=== PATIENT | female | born 1975 | race Caucasian/White ===

== ENCOUNTER → 2024-01-01 14:46 | Outpatient (REF) | payer OTHER, SELFPAY ==
[2024-01-01 15:34] LABS: Glucose 88 mg/dl (70-99); HDL Cholesterol 41 mg/dl; LDL Cholesterol, Calculated 119 mg/dl; Total Cholesterol 197 mg/dl (50-199); Triglyceride 189 mg/dl (10-149); Very Low Density Lipoprotein 37 mg/dl (0-30)
[2024-01-01 15:53] LABS: Vitamin D, 25-OH*** 45.7 ng/mL (30-80)
[2024-01-01 17:49] LABS: TSH 1.65 uIU/ml (0.47-4.68)
[2024-01-02 09:18] LABS: Glycohemoglobin (HgbA1c) 5.8 % (4.0-5.6)
== END ==
LOC: REG 14:46
PROVIDERS: ATTENDING PHYSICIAN Nurse Practitioner Adult Health
DX: E03.9 Hypothyroidism, unspecified (principal); R73.03 Prediabetes; E55.9 Vitamin D deficiency, unspecified
CPT/HCPCS: 36415; 80061; 82306; 82947; 83036; 84439; 84443

== ENCOUNTER → 2024-02-09 14:41 | Outpatient (REF) | payer OTHER, SELFPAY | LOC: WDC 14:41 | PROVIDERS: ATTENDING PHYSICIAN Nurse Practitioner Adult Health | DX: Z12.31 Encounter for screening mammogram for malignant neoplasm of breast (principal); R92.8 Other abnormal and inconclusive findings on diagnostic imaging of breast | CPT/HCPCS: 76642; 77063; 77067 ==

== ENCOUNTER 2024-10-04 14:17 | Emergency (ER) | payer SELFPAY ==
[2024-10-04 14:25] VITALS: BP 168/99
--- NOTE | 2024-10-04 14:25 | ED.GENMED ---
History of Present Illness
General
Chief Complaint: Medication Reaction
Source: patient
Time Seen by Provider: 10/04/24 14:29
History of Present Illness
History of Present Illness:
49-year-old female presenting the ER for medication refill stating that she used to get her Synthroid medication through the [facility] however due to some insurance issues she is unable to see them any further. Patient states that on
October 31 she will be seeing a new primary care provider but needed a new prescription until that point. She otherwise has no other concerns at this time.
Past History
Past History
ED Past Medical History: Hypothyroidism
ED Past Surgical History: None
Social History
Tobacco: Non-smoker
Alcohol: Occasional
Drug: None
Living: with family
Review of Systems
Review of Systems
All Other Systems: ROS reviewed and negative except as documented in HPI and ROS
Phy Exam
Physical Exam
Physical Exam:
GENERAL: Alert , in no apparent distress
EYE: conjunctiva clear
Head: Normocephalic atraumatic
NECK: Supple,
ENT: mmm.
LUNGS: no acute respiratory distress
NEUROLOGICAL: Alert and oriented
SKIN: Warm and dry, skin intact.
MUSCULOSKELETAL: well perfused.
PSYCH: Normal and appropriate interaction.
Scores
Heart Failure Risk
Heart Failure Risk Score: Not Applicable
Heart Score for Chest Pain Patients
STEMI patient?: Not applicable
Withdrawal Assessment of Alcohol
Withdrawal Assessment Completed?: Not applicable
Course
Vital Signs
Initial and Last Documented VS:
Initial Vital Signs
Temp Pulse Resp BP Pulse Ox
98.7 F 80 18 168/99 97
10/04/24 14:25 10/04/24 14:25 10/04/24 14:25 10/04/24 14:25 10/04/24 14:25
Last Documented Vital Signs
Temp Pulse Resp BP Pulse Ox
98.7 F 80 18 168/99 97
10/04/24 14:25 10/04/24 14:25 10/04/24 14:25 10/04/24 14:25 10/04/24 14:25
MDM/Problems Addressed
MDM/Problems Addressed:
Patient presenting to the ER for refill of her Synthroid. She takes 50 mcg every other day and 25 mcg on the other days. Will refill a month supply of this as this will get her to her new primary care provider appointment. She is otherwise stable
for discharge home from the ER.
*Pulse Oximetry
Patient hypoxic: no
*Critical Care Note
Total Time (30-74mins, 75-104mins- exclusive of procedures): Not Applicable
ED Attending Note
-
Portions of this chart may have been created with voice recognition software.� Occasional wrong word or��sound alike� substitutions may have occurred due to the inherent limitations of voice recognition software.
Discharge Plan
Departure
Patient Disposition: Home (Routine Discharge)
Date of Disposition: 10/04/24
Time of Disposition: 14:28
Patient with high blood pressure during this ER visit?: Yes
Discharge Problem:
Prescription refill
Prescriptions:
New
levothyroxine [Synthroid] 50 mcg tablet
See Rx Instructions .ROUTE .COMPLEX Qty: 30 0RF
Rx Instructions:
50 mcg orally every other day
levothyroxine [Synthroid] 25 mcg tablet
See Rx Instructions .ROUTE .COMPLEX Qty: 30 0RF
Rx Instructions:
25 mcg orally every other day
Interventions
Interventions:
*Nursing Disposition Last Done: 10/04/24 14:51
Discharge Date and Time
Discharge Date/Time: 10/04/24 14:52
Print Language: VIET[place]ESE
== END 2024-10-04 14:52 | disposition home or self-care (01) ==
LOC: EMR 14:17
PROVIDERS: EMERGENCY PHYSICIAN Student in an Organized Health Care Education/Training Program
DX: Z76.0 Encounter for issue of repeat prescription (principal); E03.9 Hypothyroidism, unspecified
CPT/HCPCS: 99282

== ENCOUNTER 2024-10-25 15:59 | Emergency (ER) | payer OTHER, SELFPAY ==
[2024-10-25 16:00] VITALS: BP 156/106
[2024-10-25 16:30] VITALS: BMI 24.2
[2024-10-25 16:33] LABS: COVID-19 Antigen Negative (Negative)
--- NOTE | 2024-10-25 16:34 | ED.GENMED ---
History of Present Illness
General
Chief Complaint: Cold/Flu/URI Symptoms
Source: patient
Time Seen by Provider: 10/25/24 16:22
History of Present Illness
History of Present Illness:
49yoF with a history of hypothyroidism presenting for evaluation of URI symptoms x 5-7 days. She initially started with congestion and a head cold. She was treating herself symptomatically with warm tea. Symptoms have been gradually worsening and
she is now having bilateral ear pain, sinus pressure, postnasal drip, body aches, and diarrhea. She is having a mild cough as well. No fevers, vomiting, abdominal pain. Her mother is also sick with similar symptoms. No recent travel.
Past History
Past History
ED Past Medical History: Hypothyroidism
ED Past Surgical History: None
Social History
Tobacco: Non-smoker
Alcohol: Occasional
Drug: None
Living: with family
Phy Exam
General Physical Exam
General Presentation: well appearing and no apparent distress
General age: appears stated age
General Skin: warm and dry
General Habitus: normal
General Mental: alert
ENT Exam
ENT Exam: TM's normal, pharynx normal, neck supple and normocephalic
Additional ENT: +Nasal congestion
Cardiovascular Exam
Cardiovascular Exam: regular rate/rhythm and no murmur
Pulmonary Exam
Pulmonary Exam: lungs clear, no respiratory distress, no rales, no crackles and no rhonchi
Neurological Exam
Neurological Exam: alert
[place] Coma Scale
Eye Opening: Spontaneous
Verbal Response: Oriented
Motor Response: Obeys Commands
GCS Total Score: 15
Skin Exam
Skin Exam: normal color and warm/dry
Psychiatric Exam
Psychiatric Exam: normal mood/affect
Course
Orders/Labs/Results
Orders:
Orders
10/25/24 16:07
COVID-19 Antigen Urgent
Source: Nasal Swab
Influenza A+B Rapid Molecular Urgent
SRINIVAS Source: Nasal Swab
Specimen Description:
Vital Signs
Initial and Last Documented VS:
Initial Vital Signs
Temp Pulse Resp BP Pulse Ox
98.9 F 74 16 156/106 99
10/25/24 16:00 10/25/24 16:00 10/25/24 16:00 10/25/24 16:00 10/25/24 16:00
Last Documented Vital Signs
Temp Pulse Resp BP Pulse Ox
98.9 F 74 16 156/106 98
10/25/24 16:00 10/25/24 16:00 10/25/24 16:00 10/25/24 16:00 10/25/24 16:30
MDM/Problems Addressed
Differential Diagnosis Includes:
49yoF here for URI symptoms x 5-7 days. C/o postnasal drip, ear pain, sinus pressure, body aches, diarrhea. No fevers. She is hypertensive with otherwise normal vitals. She is well appearing in no distress. Exam shows nasal congestion but is
otherwise reassuring. Differential diagnosis includes but is not limited to: URI, influenza, COVID, sinusitis
COVID/flu testing obtained in triage is negative. Suspect viral URI. Supportive care discussed. Provided 'watch and wait' prescription for doxycycline which she was advised to only fill if symptoms do not improve in 3-4 days. Advised f/u with PCP.
Patient discharged in stable condition.
*Critical Care Note
Total Time (30-74mins, 75-104mins- exclusive of procedures): Not Applicable
ED Attending Note
-
Portions of this chart may have been created with voice recognition software.� Occasional wrong word or��sound alike� substitutions may have occurred due to the inherent limitations of voice recognition software.
Discharge Plan
Departure
Patient Disposition: Home (Routine Discharge)
Date of Disposition: 10/25/24
Time of Disposition: 17:00
Patient with high blood pressure during this ER visit?: Yes
Discharge Problem:
Acute upper respiratory infection
Instructions: Upper respiratory infection in adults - Discharge instructions
Prescriptions:
New
doxycycline hyclate 100 mg capsule
100 mg PO BID Qty: 14 0RF
Referrals:
Vega Patterson MD [Family Provider] -
Activity Restrictions/Additional Instructions:
Drink plenty of fluids and rest. Use Mucinex and Flonase nasal spray for congestion. Take ibuprofen 400mg-600mg every 6 hours as needed for body aches/fevers.
Only fill the antibiotic prescription if you do not improve in 3-4 days.
Return to the ER with any worsening symptoms or shortness of breath.
Interventions
Interventions:
*Risk Screen - Suicide Last Done: 10/25/24 16:00
*General Assessment Last Done: 10/25/24 16:00
*Neglect/Abuse Screening Last Done: 10/25/24 16:00
ED- Fall Risk Assessment Last Done: 10/25/24 16:30
*ED COVID-19 Vaccine History Last Done: 10/25/24 16:00
*Nursing Disposition Last Done: 10/25/24 17:12
ED- Pulmonary Assessment Last Done: 10/25/24 16:30
Discharge Date and Time
Discharge Date/Time: 10/25/24 17:21
Print Language: SYRI[place]
== END 2024-10-25 17:21 | disposition home or self-care (01) ==
LOC: EMR 15:59
PROVIDERS: Emergency Medicine; EMERGENCY PHYSICIAN Emergency Medicine; FAMILY PHYSICIAN Family Medicine
DX: J06.9 Acute upper respiratory infection, unspecified (principal); E03.9 Hypothyroidism, unspecified
CPT/HCPCS: 99283; 87502; 87811

== ENCOUNTER → 2025-02-28 15:37 | Outpatient (REF) | payer OTHER, SELFPAY ==
[2025-02-28 16:30] LABS: % Basophils 0.4 % (0-2); % Eosinophils 1.2 % (0-6); % Immature Granulocytes 0.6 % (0-0.5); % Lymphocytes 24.4 % (20.5-51.1); % Monocytes 7.9 % (1.7-9.3); % Neutrophils 65.5 % (42.2-75.2); Absolute Eosinophils 0.1 10^3/uL (0-0.7); Absolute Immature Granulocytes 0.1 10^3/uL (0-0.05); Absolute Monocytes 0.7 10^3/uL (0.1-0.6); Absolute Neutrophils 5.5 10^3/uL (1.4-6.5); Hematocrit 36.6 % (37.0-47.0); Hemoglobin 12.1 g/dL (12.0-16.0); Mean Corp Hgb Conc. 33.1 g/dL (33.0-37.0); Mean Corpuscular Hgb 27.4 pg (27.0-31.0); Mean Platelet Volume 9.2 fL (7.4-10.4); Nucleated Red Blood Cells % 0 %; Platelet Count 362 10^3/uL (130-400); Red Blood Cell Count 4.41 10^6/uL (4.20-5.40); Red Cell Dist. Width 15.6 % (11.5-14.5); White Blood Cell Count 8.4 10^3/uL (4.8-10.8)
[2025-02-28 17:01] LABS: ALT (SGPT) 20 U/L (0-35); AST (SGOT) 17 U/L (14-36); Albumin 4.5 g/dl (3.5-5.0); Alkaline Phosphatase 61 U/L (38-126); Blood Urea Nitrogen 12 mg/dl (7-17); Calcium 10.4 mg/dl (8.4-10.2); Carbon Dioxide 25 mmol/L (22-30); Chloride 105 mmol/L (98-107); Glucose 100 mg/dl (70-99); HDL Cholesterol 38 mg/dl; LDL Cholesterol, Calculated 132 mg/dl; Potassium 3.9 mmol/L (3.5-5.1); Sodium 140 mmol/L (135-145); Total Bilirubin 0.5 mg/dl (0.2-1.3); Total Cholesterol 229 mg/dl (50-199); Total Protein 7.1 g/dl (6.3-8.2); Triglyceride 298 mg/dl (10-149); Very Low Density Lipoprotein 59 mg/dl (0-30); eGFR > 60.00
[2025-02-28 17:16] LABS: TSH 1.18 uIU/ml (0.47-4.68)
== END ==
LOC: REG 15:37
PROVIDERS: ATTENDING PHYSICIAN Physician Assistant Medical
DX: E03.9 Hypothyroidism, unspecified (principal); K62.9 Disease of anus and rectum, unspecified; K64.4 Residual hemorrhoidal skin tags
CPT/HCPCS: 36415; 80053; 80061; 84443; 85025

== ENCOUNTER → 2025-03-08 12:05 | Outpatient (REF) | payer OTHER, SELFPAY ==
[2025-03-08 13:04] LABS: % Basophils 0.6 % (0-2); % Eosinophils 1.6 % (0-6); % Immature Granulocytes 0.5 % (0-0.5); % Lymphocytes 25.5 % (20.5-51.1); % Monocytes 9.3 % (1.7-9.3); % Neutrophils 62.5 % (42.2-75.2); Absolute Eosinophils 0.1 10^3/uL (0-0.7); Absolute Lymphocytes 1.6 10^3/uL (1.2-3.4); Absolute Monocytes 0.6 10^3/uL (0.1-0.6); Hematocrit 36.5 % (37.0-47.0); Mean Corp Hgb Conc. 32.9 g/dL (33.0-37.0); Mean Corpuscular Hgb 27.8 pg (27.0-31.0); Mean Corpuscular Volume 84.7 fL (81.0-99.0); Mean Platelet Volume 9.3 fL (7.4-10.4); Nucleated Red Blood Cells % 0 %; Platelet Count 387 10^3/uL (130-400); Red Blood Cell Count 4.31 10^6/uL (4.20-5.40); Red Cell Dist. Width 15.5 % (11.5-14.5); White Blood Cell Count 6.4 10^3/uL (4.8-10.8)
[2025-03-08 14:18] LABS: Beta HCG Quantitative < 2.39 mIU/ml; Prolactin 13.4 ng/ml (3.0-18.6)
[2025-03-08 14:32] LABS: Hepatitis B Surface Antigen Negative (Negative); TSH Reflex To Free T4 1.45 uIU/ml (0.47-4.68)
[2025-03-08 14:42] LABS: HIV Combo Negative (Negative)
[2025-03-08 14:50] LABS: Hepatitis C Antibody Negative (Negative)
[2025-03-10 13:21] LABS: Syphilis/T. pallidum Ab Reflex Negative (Negative)
== END ==
LOC: REG 12:05
PROVIDERS: ATTENDING PHYSICIAN Obstetrics & Gynecology; FAMILY PHYSICIAN Family Medicine
DX: N93.9 Abnormal uterine and vaginal bleeding, unspecified (principal); Z11.3 Encounter for screening for infections with a predominantly sexual mode of transmission
CPT/HCPCS: 36415; 84146; 84443; 84702; 85025; 86780; 86803; 87340; 87389

== ENCOUNTER → 2025-04-07 18:46 | Outpatient (REF) | payer OTHER, SELFPAY | LOC: WDC 18:46 | PROVIDERS: ATTENDING PHYSICIAN Obstetrics & Gynecology; FAMILY PHYSICIAN Internal Medicine | DX: Z12.31 Encounter for screening mammogram for malignant neoplasm of breast (principal) | CPT/HCPCS: 77063; 77067 ==

== ENCOUNTER → 2025-08-11 15:24 | Outpatient (REF) | payer OTHER, SELFPAY ==
[2025-08-11 20:04] LABS: Hepatitis C Antibody Negative (Negative)
== END ==
LOC: REG 15:24
PROVIDERS: ATTENDING PHYSICIAN Internal Medicine
DX: E03.9 Hypothyroidism, unspecified (principal)
CPT/HCPCS: 36415; 84443; 86803

== ENCOUNTER → 2025-08-26 13:21 | Outpatient (REF) | payer OTHER, SELFPAY | LOC: RAD 13:21 | PROVIDERS: ATTENDING PHYSICIAN Obstetrics & Gynecology; FAMILY PHYSICIAN Family Medicine | DX: N92.0 Excessive and frequent menstruation with regular cycle (principal) | CPT/HCPCS: 76830; 76856 ==